=== PATIENT | female | born 2000 | race Two or more races ===

== ENCOUNTER 2021-01-13 01:11 | Emergency (ER) | payer SELFPAY ==
[~2021-01-13] VITALS: Ht 154.9 cm; Wt 60.0 kg
[2021-01-13] MEDS ORDERED: IBUP-1060 PO (01:29)
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
[2021-01-13] MEDS ORDERED: ACETAMINOPHEN 500 MG TABLET PO ONE (01:30)
[2021-01-13] MEDS ORDERED: IBUPROFEN 400 MG TABLET. PO ONE (01:30)
[2021-01-13] MEDS ORDERED: IBUPROFEN 200 MG TABLET. PO ONE (02:01)
[2021-01-13 03:15] VITALS: BP 142/64
== END 2021-01-13 02:26 | disposition home or self-care (01) ==
LOC: ER 01:11
DX: S61.300A Unspecified open wound of right index finger with damage to nail, initial encounter (principal); Y08.89XA Assault by other specified means, initial encounter; Y93.89 Activity, other specified; Y92.89 Other specified places as the place of occurrence of the external cause; Y99.8 Other external cause status
CPT/HCPCS: 99283